=== PATIENT | female | born 1980 | race Asian ===

== ENCOUNTER 2020-08-23 18:57 | Emergency (ER) | payer SELFPAY ==
[~2020-08-23] VITALS: Ht 152.4 cm; Wt 63.5 kg
[2020-08-23 18:58] VITALS: BP 153/96
[2020-08-23] MEDS ORDERED: IBUPROFEN 800 MG TAB PO ONE (21:30)
== END 2020-08-23 21:38 | disposition home or self-care (01) ==
LOC: ER 18:57
DX: S93.401A Sprain of unspecified ligament of right ankle, initial encounter (principal); W19.XXXA Unspecified fall, initial encounter; Y93.89 Activity, other specified; Y92.89 Other specified places as the place of occurrence of the external cause; Y99.8 Other external cause status
CPT/HCPCS: 73610